=== PATIENT | male | born 1950 ===

== ENCOUNTER 2018-11-05 11:21 | Emergency (ER) | payer MEDICARE, MEDICAID ==
[2018-11-05 11:27] VITALS: RESP 18; O2SAT 98
--- NOTE | 2018-11-05 11:43 | C.PDOC ---
History Of Present Illness 67 year old male presents to the emergency department with complaints of right- sided facial swelling for the last four days. Patient states that his pain has gotten better but the swelling has remained the same. Patient's PMD prescribed his Keflex which provided minimal relief of symptoms. Time Seen by Provider: 11/05/18 11:40 Chief Complaint (Nursing): Dental Pain History Per: Patient History/Exam Limitations: no limitations Onset/Duration Of Symptoms: Days (4) Current Symptoms Are (Timing): Still Present Severity: Moderate Quality: Positive for: "Pain", Other (swelling) Past Medical History Reviewed: Historical Data, Nursing Documentation, Vital Signs Vital Signs: Last Vital Signs Temp 97.5 F L 11/05/18 11:24 Pulse 94 H 11/05/18 11:24 Resp 18 11/05/18 11:24 BP 130/90 11/05/18 11:24 Pulse Ox 98 11/05/18 11:24 - Medical History PMH: Atrial Fibrillation, COPD, Depression, Hepatitis, HTN, Pneumonia Denies: Chronic Kidney Disease Surgical History: Coronary Stent, Pacemaker - [facility] Procedures DRAINAGE OF PERITONEAL CAVITY, PERCUTANEOUS APPROACH (10/26/16) DRAINAGE OF PERITONEAL CAVITY, PERCUTANEOUS APPROACH, DIAGN (07/24/16) MEASUREMENT OF CARDIAC PACEMAKER, EXTERNAL APPROACH (10/26/16) ULTRASONOGRAPHY OF ABDOMEN (10/26/16) Family History: States: No Known Family Hx - Social History Hx Tobacco Use: No Hx Alcohol Use: Yes (stopped 7 yrs ago) Hx Substance Use: No - Immunization History Hx Tetanus Toxoid Vaccination: No Hx Influenza Vaccination: No Hx Pneumococcal Vaccination: No Review Of Systems Except As Marked, All Systems Reviewed And Found Negative. Constitutional: Negative for: Fever, Chills ENT: Positive for: Mouth Swelling (right-sided) Physical Exam - Physical Exam Appears: Well, Non-toxic, No Acute Distress Skin: Normal Color, Warm, Dry, No Rash Head: Atraumatic, Normacephalic, Swelling (moderate right-sided facial swelling and induration) Eye(s): bilateral: Normal Inspection, PERRL, EOMI Oral Mucosa: Moist Teeth: Caries, Tender To Palpation Gingiva: Swelling Throat: No Erythema, No Exudate Neck: Normal ROM, Supple Chest: Symmetrical, No Tenderness Neurological/Psych: Oriented x3, Normal Speech, Normal Cognition ED Course And Treatment O2 Sat by Pulse Oximetry: 98 (RA) Pulse Ox Interpretation: Normal Progress Note: Plan: Cleocin 300mg PO. Motrin 600mg PO Disposition - Disposition Referrals: Eunice García DMD [Staff Provider] - Edwin Ott DMD [Staff Provider] - Disposition: HOME/ ROUTINE Disposition Time: 13:12 Condition: STABLE Additional Instructions: Follow up with the dentist within 1-2 days without fail. return if worsened/. Prescriptions: Clindamycin [Cleocin] 300 mg PO TID #30 cap Ibuprofen [Motrin] 600 mg PO TID #21 tab Instructions: Tooth Abscess (DC) Forms: [employer] (Afghan) Print Language: INDONESIAN - Clinical Impression Clinical Impression: Dental caries, Dental abscess - PA / INDUSTRIAL STAFF NURSE / Resident Statement MD/DO has reviewed & agrees with the documentation as recorded. - Scribe Statement The provider has reviewed the documentation as recorded by the Scribe (Anuel Gutierrez) All medical record entries made by the Scribe were at my direction and personally dictated by me. I have reviewed the chart and agree that the record accurately reflects my personal performance of the history, physical exam, medical decision making, and the department course for this patient. I have also personally directed, reviewed, and agree with the discharge instructions and disposition.
[2018-11-05 13:24] VITALS: BP 133/80; PULSE 88; TEMP 98.3
== END 2018-11-05 13:24 | disposition home or self-care (01) ==
LOC: C.ER 11:21
DX: K02.9 Dental caries, unspecified (principal); K04.7 Periapical abscess without sinus; I10 Essential (primary) hypertension; I48.91 Unspecified atrial fibrillation